=== PATIENT | female | born 1985 | race American Indian/Alaskan Native ===

== ENCOUNTER 2017-08-04 13:06 | Emergency (ER) | payer MEDICAID ==
[2017-08-04 13:33] VITALS: TEMP 98.2
[2017-08-04 15:22] VITALS: RESP 18; O2SAT 98
--- NOTE | 2017-08-04 16:29 | ED PDOC ---
Arrival/HPI - General Chief Complaint: Lower Extremity Problem/Injury Time Seen by Provider: 08/04/17 14:32 Historian: Patient - History of Present Illness Narrative History of Present Illness (Text): 08/04/17 16:19 32yo morbidly obese female who present with complaint of lower back and left knee pain s/p trauma yesterday. States she slipped and fell yesterday, injuring her knee and back. She states that she fell forward and sustained a scratch to her left knee. She started having both knee and lower back pain today. states pain is sharp with ambulation. She did not take any medication. Denies hitting her head anywhere. Denies LOC, focal weakness, urinary/fecal incontinence, dizziness, focal weakness ,saddle anesthesia. Past Medical History - Provider Review Nursing Documentation Reviewed: Yes - Psychiatric Hx Psychophysiologic Disorder: No Hx Substance Use: No - Surgical History Hx Section: Yes Family/Social History - Physician Review Nursing Documentation Reviewed: Yes Family/Social History: Unknown Family HX Smoking Status: Light Smoker < 10 Cigarettes Daily Hx Alcohol Use: Yes Frequency of alcohol use: Socially Hx Substance Use: No Allergies/Home Meds Allergies/Adverse Reactions: Allergies No Known Allergies Allergy (Verified 08/04/17 13:29) Review of Systems - Physician Review All systems were reviewed & negative as marked: Yes - Review of Systems Constitutional: Normal Eyes: Normal ENT: Normal Respiratory: Normal Cardiovascular: Normal Gastrointestinal: Normal Genitourinary Female: Normal Musculoskeletal: Arthralgias (Left knee), Back Pain Skin: Normal Neurological: Normal Endocrine: Normal Hemo/Lymphatic: Normal Psychiatric: Normal Physical Exam Vital Signs Reviewed: Yes Vital Signs Temp Pulse Resp BP Pulse Ox 08/04/17 17:04 76 18 157/99 H 98 08/04/17 15:22 86 18 135/74 98 08/04/17 13:29 98.2 F 92 H 16 138/86 97 Temperature: Afebrile Blood Pressure: Normal Pulse: Regular Respiratory Rate: Normal Appearance: Positive for: Well-Appearing, Non-Toxic, Comfortable Pain Distress: None Mental Status: Positive for: Alert and Oriented X 3 - Systems Exam Head: Present: Atraumatic, Normocephalic Pupils: Present: PERRL Extroacular Muscles: Present: EOMI Conjunctiva: Present: Normal Mouth: Present: Moist Mucous Membranes Neck: Present: Normal Range of Motion Respiratory/Chest: Present: Clear to Auscultation, Good Air Exchange. No: Respiratory Distress, Accessory Muscle Use Cardiovascular: Present: Regular Rate and Rhythm, Normal S1, S2. No: Murmurs Abdomen: No: Tenderness, Distention, Peritoneal Signs Back: Present: Normal Inspection. No: Midline Tenderness, Paraspinal Tenderness , Pain with Leg Raise Upper Extremity: Present: Normal Inspection. No: Cyanosis, Edema Lower Extremity: Present: NORMAL PULSES, Normal ROM, Tenderness (LEft anterior knee), Neurovascularly Intact, Other (Linear superficial abrasion noted on anterior left knee). No: Edema, Swelling Neurological: Present: GCS=15, CN II-XII Intact, Speech Normal Skin: Present: Warm, Dry, Normal Color. No: Rashes Psychiatric: Present: Alert, Oriented x 3, Normal Insight, Normal Concentration Medical Decision Making ED Course and Treatment: 08/04/17 20:17 LS xray and left knee xray - Negative Her pain was controlled in Emergency department. She was ambulatory and neurologically intact in Emergency department. Juan wrap and crutches given Pt referred to ortho. - RAD Interpretation Radiology Orders: 08/04/17 14:33 LS SPINE WITH OBL > 18 YRS OLD [RAD] Stat 08/04/17 14:34 KNEE WITH PATELLA LEFT 3 VIEW [RAD] Stat - Medication Orders Current Medication Orders: Discontinued Medications Cyclobenzaprine HCl (Flexeril) 10 mg PO STAT STA Stop: 08/04/17 14:36 Last Admin: 08/04/17 15:12 Dose: 10 mg Ketorolac Tromethamine (Toradol) 60 mg IM STAT STA Stop: 08/04/17 14:35 Last Admin: 08/04/17 15:11 Dose: 60 mg MAR Pain Assessment Document 08/04/17 15:11 HI (Rec: 08/04/17 15:11 HI [id number]) Pain Reassessment Is this a pain reassessment? No Sleep Is patient sleeping during reassessment? No Presence of Pain Presence of Pain Yes Location Pain Location Body Site Back IM Administration Charges Document 08/04/17 15:11 HI (Rec: 08/04/17 15:11 HI [id number]) Charges for Administration # of IM Administrations 1 Disposition/Present on Arrival - Present on Arrival Any Indicators Present on Arrival: No History of DVT/PE: No History of Uncontrolled Diabetes: No Urinary Catheter: No History of Decub. Ulcer: No History Surgical Site Infection Following: None - Disposition Have Diagnosis and Disposition been Completed?: Yes Diagnosis: Back pain, Knee pain Disposition: HOME/ ROUTINE Disposition Time: 17:20 Patient Plan: Discharge Patient Problems: Current Active Problems Problem Status Onset Back pain Acute Knee pain Acute Condition: STABLE Discharge Instructions (ExitCare): Low Back Pain (DC), Knee Pain (DC) Additional Instructions: Follow up with your Doctor/Orthopedist Return to Emergency department for any new or worsening symptoms Prescriptions: Cyclobenzaprine [Cyclobenzaprine HCl] 10 mg PO TID #12 tab Ibuprofen [Motrin Tab] 600 mg PO Q6 #20 tab Referrals: Nazario Felix [Primary Care Provider] - Follow up with primary Forms: [email or web address] (Yakut)
[2017-08-04 17:04] VITALS: BP 157/99; PULSE 76
--- NOTE | 2017-08-04 17:30 | RAD ---
PROCEDURE: Radiographs of the Lumbar Spine. HISTORY: back pain s/p trauma COMPARISON: No prior. FINDINGS: BONES: Normal alignment. No listhesis. No fracture. DISC SPACES: Unremarkable. OTHER FINDINGS: None. IMPRESSION: Unremarkable radiographs of the lumbar spine.
--- NOTE | 2017-08-04 17:32 | RAD ---
PROCEDURE: Left Knee with patella Radiographs. HISTORY: Pain. COMPARISON: None. FINDINGS: BONES: Normal. No fracture. JOINTS: Normal. No osteoarthritis. JOINT EFFUSION: None. OTHER FINDINGS: None. IMPRESSION: Normal radiographs of the left knee.
== END 2017-08-04 17:49 | disposition home or self-care (01) ==
LOC: MERGE 13:06 → ED 13:06
DX: M54.5 Low back pain (principal); M25.562 Pain in left knee; E66.01 Morbid (severe) obesity due to excess calories; F17.210 Nicotine dependence, cigarettes, uncomplicated
CPT/HCPCS: 29530; 72110; 73562; 96372; 99283; J1885